=== PATIENT | female | born 1970 | race Asian ===

== ENCOUNTER → 2016-10-07 | Day surgery (SDC) | payer BC ==
--- NOTE | 2016-10-08 14:06 | OP ---
DATE OF OPERATION: 10/07/2016 PREOPERATIVE DIAGNOSIS: Abnormal right mammography. POSTOPERATIVE DIAGNOSIS: Abnormal right mammography. PROCEDURE: Right stereotactic needle biopsy with clips. SURGEON: Kathryn Nguyen MD ANESTHESIA: Local. COMPLICATIONS: None. This was a sterile procedure. INDICATION FOR PROCEDURE: The patient presented with screening mammography that noted a cluster of microcalcifications in the lower inner right breast. My recommendation was needle biopsy. The procedure was discussed with her including the need for a clip. PROCEDURE IN DETAIL: The patient was brought to [facility] in [place], laid prone on the Lorad table. Using the caudal approach, the calcifications in the slightly inner right breast were identified. A sterile prep was obtained. A target was chosen. There was a positive stroke margin. Using Betadine and 1% lidocaine, a 9-gauge [employer] device was used to take several cores in this area. The cores showed calcification within them. These were handled using the calcification protocol. They were sent to Pathology in formalin. A clip was deployed in the area. Hemostasis was assured with direct pressure. She tolerated the procedure well. Steri-Strips were used to close the incision. She left the breast room in good condition. KATHRYN NGUYEN M.D. [id number]
--- NOTE | 2016-10-09 12:28 | PATH ---
Surgical Pathology Report Patient Name: RIVAS AGUILA [facility]. Rec. #: [id number] /Age/Gender: 1970 (Age: 46) / F Account: [id number] Location: [facility] Taken: 10/07/2016 Received: 10/07/2016 Reported: 10/09/2016 Physicians: Kathryn Mcknight M.D. Specimen(s) Received A: RIGHT BREAST SPECIMEN WITH CALCIFICATIONS B: RIGHT BREAST SPECIMEN WITHOUT CALCIFICATIONS Clinical History Mammographic findings: Microcalcifications, suspicious Final Diagnosis A. BREAST, RIGHT, WITH CALCIFICATIONS, STEREOTACTIC BIOPSY: DUCTAL CARCINOMA IN SITU (DCIS), SOLID AND CRIBRIFORM TYPE, INTERMEDIATE NUCLEAR GRADE WITH MODERATE NECROSIS AND ASSOCIATED CALCIFICATIONS. B. BREAST, RIGHT, WITHOUT CALCIFICATIONS, STEREOTACTIC BIOPSY: BENIGN BREAST TISSUE. Results of ER and KY studies performed on block A at [facility] are as follows: ER (clone [id number] mouse monoclonal antibody by Leica) :> 90 % nuclear staining with strong intensity (Positive). KY (clone16 mouse monoclonal antibody by Leica): > 90 % nuclear staining with strong intensity (Positive). Positive and negative controls (internal if applicable) show appropriate results. Formalin fixation and cold ischemic times are within current ASCO/CAP recommendations for ER, KY and Her2 testing. Electronically Signed Tatyana Delatorre M.D. Gross Description A. Received in formalin, labeled "right breast specimen with calcifications" are six fragment of rosenbaum-yellow tissue 1.0-1.5 cm in length and 0.3 cm in diameter. Submitted entirely in one cassette. B. Received in formalin, labeled "right breast specimen without calcifications" is a single fragment of rosenbaum-yellow tissue 1.5 cm in length and 0.3 cm in diameter. Submitted entirely in one cassette. Time to formalin fixation: 5 minutes Total formalin fixation time: Approximately 7 hours. AF/10/07/2016 final/10/07/2016
== END | disposition home or self-care (01) ==
LOC: FMAMMOTONE 10:00
PROVIDERS: ATTEND Surgery
PROC: 0HBT3ZX Excision of Right Breast, Percutaneous Approach, Diagnostic (ICD-10-PCS; principal; 2016-10-07)
DX: D05.11 Intraductal carcinoma in situ of right breast (principal); R92.1 Mammographic calcification found on diagnostic imaging of breast
CPT/HCPCS: 19081; 87899; 88305-TC; 88342-TC; A4648

== ENCOUNTER → 2016-11-13 | Day surgery (SDC) | payer BC | END | disposition home or self-care (01) | LOC: FRADUS-SUR 10:10 | PROVIDERS: ATTEND Surgery | PROC: 0HBU3ZX Excision of Left Breast, Percutaneous Approach, Diagnostic (ICD-10-PCS; principal; 2016-11-13) | DX: D05.12 Intraductal carcinoma in situ of left breast (principal); Z53.8 Procedure and treatment not carried out for other reasons | CPT/HCPCS: 19085; C1887 ==

== ENCOUNTER 2016-12-13 05:21 | Day surgery (SDC) | payer BC ==
[2016-12-12 11:43] VITALS: BMI 30.2
[2016-12-13] MEDS ORDERED: oxyCODONE HCL 5 MG TABLET PO PRN (11:52)
[2016-12-13] MEDS ORDERED: ONDANSETRON 4 MG/2 ML VIAL IVPUSH PRN (11:52)
[2016-12-13] MEDS ORDERED: PROPOFOL 20 ML ONE ×3 (11:55→12:28)
[2016-12-13] MEDS ORDERED: MIDAZOLAM HCL 2 MG/2 ML SINGLE DOSE VIAL ONE ×2 (11:55)
[2016-12-13] MEDS ORDERED: LACTATED RINGERS SOLUTION 1,000 ML IV SCH (12:00)
[2016-12-13] MEDS ORDERED: KETOROLAC TROMETHAMINE 30 MG/1 ML VIAL ONE (12:14)
[2016-12-13] MEDS ORDERED: DEXAMETHASONE SOD PHOSPHATE 4 MG/1 ML VIAL ONE (12:14)
[2016-12-13] MEDS ORDERED: LIDOCAINE HCL 1%, 10 MG/ML (50 mL VIAL) INF ONE (12:18)
[2016-12-13 14:18] VITALS: BP 111/73; PULSE 75; TEMP 97.8
--- NOTE | 2016-12-13 16:34 | OP ---
DATE OF OPERATION: 12/13/2016 PREOPERATIVE DIAGNOSIS: Right breast ductal carcinoma in situ. POSTOPERATIVE DIAGNOSIS: Right breast ductal carcinoma in situ. PROCEDURE: Right breast lumpectomy. SURGEON: Kathryn Mcknight MD ANESTHESIA: Local IV sedation. ESTIMATED BLOOD LOSS: Minimal. COMPLICATIONS: None. This is a sterile procedure. INDICATION FOR PROCEDURE: Patient had screening mammography that noted cluster of microcalcifications in the lower inner subareolar right breast. A needle biopsy showed a ductal carcinoma in situ. She had a preoperative MRI that noted initially an abnormality on the left breast, but when she went back for the biopsy, nothing was seen, and an area of 1.2 cm enhancement within the area which I biopsied as DCIS in the right breast. Recommendation was a right lumpectomy. The procedure was discussed with all the questions answered. PROCEDURE IN DETAIL: The patient was brought to [facility], first taken to Breast Imaging, where MLO and CC views were taken and appeared that the clip was actually palpable and just under the skin. Therefore, because it was palpable, no wire was needed. She was then brought up to the operating room, and after IV sedation, the right breast was prepped in usual sterile fashion. The area on the lower inner right breast was anesthetized with 1% lidocaine without epinephrine. A radial incision was made in the right breast 4 to 5 o'clock location to include an ellipse of skin where the palpable clip was located. The superior, inferomedial and lateral flaps were created, and an en bloc lumpectomy was performed, tagged with a long stitch lateral, short stitch superior, and this was sent to Pathology for permanent section. Hemostasis with electrocautery. The parenchyma was approximated with interrupted 2-0 Vicryl; skin approximated with interrupted 3-0 Vicryl and running 4-0 Prolene. A sterile dressing of Steri-Strips and Tegaderm was applied. She tolerated procedure well, was taken to Recovery in good condition. Di [id number]
--- NOTE | 2016-12-16 14:11 | PATH ---
Surgical Pathology Report Patient Name: RIVAS AGUILA [facility]. Rec. #: [id number] /Age/Gender: 1970 (Age: 46) / F Account: [id number] Location: [facility] SURGICAL Taken: 12/13/2016 Received: 12/13/2016 Reported: 12/16/2016 Physicians: Kathryn Mcknight M.D. Specimen(s) Received RIGHT BREAST LUMPECTOMY LONG STITCH LATERAL SHORT SUPERIOR Clinical History Right DCIS wide excision Final Diagnosis RIGHT BREAST, WIDE EXCISION: CHANGES CONSISTENT WITH PRIOR BIOPSY SITE, ARISING IN A BACKGROUND OF BENIGN BREAST TISSUE WITH FIBROCYSTIC CHANGES INCLUDING USUAL DUCTAL HYPERPLASIA (UDH), COLUMNAR CELL CHANGE, STROMAL FIBROSIS AND DUCTAL DILATATION. NO RESIDUAL DUCTAL CARCINOMA IN SITU (DCIS) IDENTIFIED. MINUTE FIBROADENOMA PRESENT. OVERLYING SKIN FREE OF LESION. Comment: See also prior specimen [id number]. Comments DCIS of Breast: Surgical Pathology Cancer Case Summary Based on AJCC/UICC TNM, 7th edition Procedure _X__ Excision without image-guided localization Specimen Laterality _X__ Right Estimated size (extent) of DCIS (greatest dimension using gross and microscopic evaluation): No residual DCIS Number of blocks with DCIS: 0 Number of blocks examined: 20 Nuclear Grade _X__ Grade II (intermediate) Necrosis _X__ Present, central (expansive "comedo" necrosis) Microcalcifications _X__ Present in DCIS Margins _X__ Margin(s) uninvolved by DCIS Distance from closest margin: No residual DCIS Pathologic Staging (pTNM) TNM Descriptors Primary Tumor (pT) _X__ pTis (DCIS): Ductal carcinoma in situ Biomarker Studies Results of ER and WI studies performed on a prior biopsy ([id number]) at [facility] are as follows: ER (clone [id number] mouse monoclonal antibody by Leica): >90% nuclear staining with strong intensity (Positive). WI (clone16 mouse monoclonal antibody by Leica): >90% nuclear staining with strong intensity (Positive). Positive and negative controls (internal if applicable) show appropriate results. Formalin fixation and cold ischemic times are within current ASCO/CAP recommendations for ER, WI and Her2 testing. Electronically Signed Elan Mccann M.D. Gross Description Received in formalin, labeled "right breast lumpectomy," is a 7.8 x 4.0 x 4.0 cm. rosenbaum-yellow, irregular, portion of fibroadipose tissue. There is a short suture marking the superior aspect and a long suture marking the lateral aspect, per the surgeon. There is a 3.2 x 0.7 cm ellipse of skin present. The specimen is inked as follows: superior and lateral blue; inferior green; medial yellow; deep black. The specimen is serially sectioned from medial to lateral. Sectioning reveals stringer and yellow fatty tissue with hemorrhagic areas towards the lateral and inferior aspects of the specimen. No indurated lesions are identified. Team Lead sections are submitted in 20 cassettes from lateral to medial, but the lateral margin in cassette 1 and the medial margin in cassette 20. JESSICA/12/13/2016 [facility]
== END 2016-12-13 15:30 | disposition home or self-care (01) ==
LOC: JASU-SURG 05:21
PROVIDERS: ATTEND Surgery
PROC: 0HBT0ZZ Excision of Right Breast, Open Approach (ICD-10-PCS; principal; 2016-12-13 11:00)
DX: D05.91 Unspecified type of carcinoma in situ of right breast (principal)
CPT/HCPCS: 19281; 84703; 88307-TC; 94760

== ENCOUNTER 2024-06-23 06:47 | Day surgery (SDC) | payer BC ==
[2024-06-22 10:57] VITALS: BMI 34.0
[2024-06-23 11:03] VITALS: TEMP 98
[2024-06-23 11:14] VITALS: BP 123/76; PULSE 72; RESP 16
== END 2024-06-23 11:15 | disposition home or self-care (01) ==
LOC: JASU-ENDO 06:47
PROVIDERS: ATTEND Internal Medicine Gastroenterology
PROC: 0DBM8ZX Excision of Descending Colon, Via Natural or Artificial Opening Endoscopic, Diagnostic (ICD-10-PCS; 2024-06-23)
PROC: 0DBP8ZX Excision of Rectum, Via Natural or Artificial Opening Endoscopic, Diagnostic (ICD-10-PCS; 2024-06-23)
PROC: 0DBN8ZX Excision of Sigmoid Colon, Via Natural or Artificial Opening Endoscopic, Diagnostic (ICD-10-PCS; 2024-06-23)
PROC: 0DBK8ZX Excision of Ascending Colon, Via Natural or Artificial Opening Endoscopic, Diagnostic (ICD-10-PCS; principal; 2024-06-23 10:00)
DX: Z12.11 Encounter for screening for malignant neoplasm of colon (principal); D12.8 Benign neoplasm of rectum; D12.2 Benign neoplasm of ascending colon; K63.5 Polyp of colon
CPT/HCPCS: 81025; 88305-TC